=== PATIENT | male | born 1950 | race Caucasian/White ===

== ENCOUNTER 2018-02-10 18:58 | Emergency (ER) | payer OTHER ==
[~2018-02-10] VITALS: Ht 182.9 cm; Wt 99.0 kg
[2018-02-10 21:10] LABS: BASOPHILS % 0.6 % (0.0-2.0); EOSINOPHILS % 1.3 % (0.0-5.0); HEMATOCRIT. 39.7 % (42.0-52.0); HEMOGLOBIN. 13.1 g/dL (14.0-18.0); LYMPHOCYTES % 10.7 % (20.0-50.0); MEAN CORPUSCULAR HEMOGLOBIN 30.3 pg (28.0-32.0); MEAN CORPUSCULAR VOLUME 91.8 fL (80.0-94.0); MONOCYTES % 6.6 % (2.0-8.0); NEUTROPHILS % 80.8 % (40.0-76.0); PLATELET 292 x1000/uL (130-400); RED BLOOD CELL COUNT 4.33 mill/uL (4.7-6.1); RED CELL DISTRIBUTION WIDTH 14.7 % (11.6-14.6)
[2018-02-10 21:18] LABS: CHLORIDE 104 mEq/L (98-107)
[2018-02-10 22:55] VITALS: BP 165/90
== END 2018-02-10 22:56 | disposition home or self-care (01) ==
LOC: ER 18:58
DX: R53.1 Weakness (principal)
CPT/HCPCS: 36415; 84484; 99283

== ENCOUNTER 2019-02-18 19:28 | Inpatient (IN) | payer MEDICARE, MEDICAID ==
[~2019-02-18] VITALS: Ht 182.9 cm; Wt 91.2 kg
[2019-02-18] MEDS ORDERED: SODIUM CHLORIDE 0.9% 1,000 ML IV ONE (20:44)
[2019-02-18] MEDS ORDERED: NAPROXEN 375MG TABLET PO ONE (21:00)
[2019-02-18 22:02] LABS: BASOPHILS % 0.8 % (0.0-2.0); EOSINOPHILS % 0.8 % (0.0-5.0); HEMATOCRIT. 39.1 % (42.0-52.0); HEMOGLOBIN. 13.2 g/dL (14.0-18.0); LYMPHOCYTES % 8.9 % (20.0-50.0); MEAN CORPUSCULAR VOLUME 91.8 fL (80.0-94.0); MEAN PLATELET VOLUME 8.8 fl (7.4-10.4); MONOCYTES % 7.2 % (2.0-8.0); NEUTROPHILS % 82.3 % (40.0-76.0); PLATELET 376 x1000/uL (130-400); RED BLOOD CELL COUNT 4.26 mill/uL (4.7-6.1); RED CELL DISTRIBUTION WIDTH 15.4 % (11.6-14.6)
[2019-02-18 22:07] LABS: CHLORIDE 106 mEq/L (98-107)
[2019-02-18 22:12] LABS: PARTIAL THROMBOPLASTIN TIME 27.3 sec (23.4-31.0); PROTHROMBIN TIME 10.1 sec (9.6-11.0)
[2019-02-19] MEDS ORDERED: LEVOFLOXACIN 750MG PREMIX 150 ML IV ONE
[2019-02-19] MEDS ORDERED: SODIUM CHLORIDE 0.9% 1000ML BAG (SEPSIS BOLUS) IV ONE
[2019-02-19 01:23] LABS: CLARITY URINE CLEAR (CLEAR); COLOR URINE YELLOW (YELLOW); KETONES URINE TRACE (NEGATIVE); LEUKOCYTE ESTERASE URINE NEGATIVE (NEGATIVE); NITRITE URINE NEGATIVE (NEGATIVE); OCCULT BLOOD URINE NEGATIVE (NEGATIVE); PROTEIN URINE NEGATIVE (NEGATIVE); SPECIFIC GRAVITY URINE 1.024 (1.005-1.030)
[2019-02-19 04:30] VITALS: BP 167/82
[2019-02-19] MEDS ORDERED: CLONIDINE 0.1MG TABLET PO PRN (05:45)
[2019-02-19 08:00] VITALS: BP 153/83
[2019-02-19] MEDS: ACETAMINOPHEN 325MG TABLET PO PRN (08:37)
[2019-02-19] MEDS: ENOXAPARIN 30MG/0.3ML SYR SUBCUT SCH ×2 (08:38→20:53)
[2019-02-19 12:00] VITALS: BP 145/87
[2019-02-19 16:51] LABS: T4 FREE 1.03 ng/dL (0.76-1.46)
[2019-02-19 16:56] LABS: CREATINE KINASE 142 IU/L (39-308)
[2019-02-19 16:57] LABS: CREATINE KINASE MB FRACTION 3.5 ng/mL (0.5-3.6)
[2019-02-19 20:00] VITALS: BP 132/65
[2019-02-20] VITALS: BP 143/72
[2019-02-20 01:38] LABS: CREATINE KINASE 136 IU/L (39-308)
[2019-02-20 01:40] LABS: CREATINE KINASE MB FRACTION 2.9 ng/mL (0.5-3.6)
[2019-02-20 04:00] VITALS: BP 147/78
[2019-02-20 08:10] LABS: CREATINE KINASE 111 IU/L (39-308)
[2019-02-20 08:12] LABS: CREATINE KINASE MB FRACTION 2.6 ng/mL (0.5-3.6)
[2019-02-20] MEDS: ENOXAPARIN 30MG/0.3ML SYR SUBCUT SCH ×2 (08:15→21:56)
[2019-02-20 12:00] VITALS: BP 123/75
[2019-02-20 15:21] LABS: BASOPHILS % 2.4 % (0.0-2.0); EOSINOPHILS % 5.2 % (0.0-5.0); HEMATOCRIT. 35.4 % (42.0-52.0); MEAN CORPUSCULAR HEMOGLOBIN 31.1 pg (28.0-32.0); MEAN CORPUSCULAR VOLUME 91.8 fL (80.0-94.0); MEAN PLATELET VOLUME 8.9 fl (7.4-10.4); MONOCYTES % 8.9 % (2.0-8.0); NEUTROPHILS % 55.5 % (40.0-76.0); PLATELET 321 x1000/uL (130-400); RED BLOOD CELL COUNT 3.86 mill/uL (4.7-6.1); RED CELL DISTRIBUTION WIDTH 15.6 % (11.6-14.6)
[2019-02-20 15:24] LABS: CHLORIDE 107 mEq/L (98-107)
[2019-02-20 16:00] VITALS: BP 150/82
[2019-02-20] MEDS: ACETAMINOPHEN 325MG TABLET PO PRN (17:50)
[2019-02-21 04:00] VITALS: BP 147/88
[2019-02-21] MEDS: ENOXAPARIN 30MG/0.3ML SYR SUBCUT SCH (08:23)
[2019-02-21] MEDS: ACETAMINOPHEN 325MG TABLET PO PRN ×2 (09:25→15:10)
[2019-02-21 12:00] VITALS: BP 133/68
[2019-02-21 16:00] VITALS: BP 129/70
[2019-02-21 16:32] VITALS: BP 129/70
== END 2019-02-21 17:30 | disposition home or self-care (01) | DRG 948 ==
LOC: ER 19:28 → EDBD 02-19 00:46 → 5WST 02-19 00:46 → ENRESERV 02-19 02:35
PROVIDERS: ADMIT Family Medicine; ATTEND Family Medicine
DX: R53.1 Weakness (principal); I10 Essential (primary) hypertension; R79.89 Other specified abnormal findings of blood chemistry; W18.30XA Fall on same level, unspecified, initial encounter; Y93.89 Activity, other specified; Y92.89 Other specified places as the place of occurrence of the external cause; Y99.8 Other external cause status; Z86.73 Personal history of transient ischemic attack (TIA), and cerebral infarction without residual deficits; Z99.3 Dependence on wheelchair
CPT/HCPCS: 36415; 71045; 73560; 73590; 78582; 80053; 80061; 81003; 82550; 82553; 83036; 83605; 83880; 84439; 84443; 84484; 85025; 85379; 93005; 93306; 93970; 99285; A9558; J1650; J1956; J7030